=== PATIENT | male | born 1995 | race Caucasian/White ===

== ENCOUNTER 2016-11-16 18:40 | Emergency (ER) | payer SELFPAY ==
--- NOTE | 2016-11-16 19:58 | ED NURSING NOTES ---
Clinical Report - Nurses [facility] [place] [address] 11/16/2016 18:44 Patient: SIL DEWEY JR TRIAGE Triage time 19:13. Acuity: LEVEL 4. Chief Complaint: RIGHT LOWER EXTREMITY PAIN and SWELLING. --19:19 Galen Weems R.N. 19:13 11/16/16. BP: 141/89. HR: 90. RR: 14. O2 saturation: 100%. Temp: 98.1 F. Pain level now: 05/31. --19:19 Galen Weems R.N. Weight: 79.3 kg stated. Height/Length: 69 inches Per Patient. BMI: 25.8. --19:18 Galen Weems R.N. Medications Ibuprofen Oral. --19:16 Galen Weems R.N. Medication/allergy information source: the patient. --19:19 Galen Weems R.N. Allergies No Known Drug Allergy. --19:16 Galen Weems R.N. History Arrived by private vehicle. Historian: patient. Accompanied by family. ( Tripped and fell last Monday and injured his right lower leg from the fall after hitting it on a root of a big tree. Increasing pain and swelling since.). This occurred (3 days ago). Provoking / relieving factors: worsened by walking; relieved by remaining still and OTC analgesics. He has had swelling. ( bruising on the oh). 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 PAST MEDICAL HX: Negative. SURGERY HX: No history of previous surgery. SOCIAL HX: Smoker- current status unknown. Occasional alcohol use; consumes beer. History of drug use: marijuana. (1 days ago). --19:19 Galen Weems R.N. Interventions ID band on patient. To room. --19:19 Galen Weems R.N. PHYSICAL ASSESSMENT Ambulatory to room. GENERAL / NEURO / PSYCH: Oriented X 4. Alert. Appears in no acute distress. EXTREMITIES: Extremity pulses are within normal limits. Extremities exhibit normal ROM. Neuro-vascular status intact to the extremity. Normal gait. Right leg: tenderness, swelling and ecchymosis. SKIN: Skin intact. Skin is warm and dry. --19:20 Galen Weems R.N. NURSING PROGRESS NOTES Patient identifiers checked. Call light placed in reach. Side rails up x 1. Bed placed in lowest position. Brakes of bed on. Patient ready for evaluation- PA notified. --19:21 Galen Weems R.N. DISPOSITION / DISCHARGE Condition at departure: improved. ( VICENTA wrap applied on the right lower leg). No learning barriers present. Discharge instructions provided and reviewed with the patient. Reviewed medication(s) side effects, precautions, dosing and course information. Prescription(s) given to the patient. Reviewed referral to a primary care physician for followup. Patient verbalized understanding. Written instructions provided in Occitan. The patient was discharged home and accompanied by tailings dam laborer and friend. He left the Emergency Department ambulatory and via private vehicle. Political Consultant driving (friend). --20:06 Galen Weems R.N. 20:04 11/16/16. BP: 128/84. HR: 84. RR: 14. O2 saturation: 100%. Temp: deferred. Pain level now: 0/10. --20:06 Galen Weems R.N. Departure time: 20:06. --20:06 Galen Weems R.N. Locked/Released at 11/16/2016 20:07 by Galen Weems R.N.
--- NOTE | 2016-11-16 19:58 | ED ORDER SUMMARY ---
..... Patient: SIL DEWEY JR OrderSheet [facility] VisitID: [id number] [address] [place] [address] 21y, M Registration Date/Time: 11/16/2016 ORDER SHEET Weight: 79.3 kg (stated) Allergies: No Known Drug Allergy GENERAL ORDERS: Tibia/Fibula Right Urgent (19:23 11/16/2016 Macrina Wellington) (Ack 19:25 Evelia Shop And Alteration Tailor) (19:35 [facility]) MEDICATION ORDERS: IV FLUIDS: ORDER SHEET NOTES: [Electronically signed by Galen Weems R.N. (20:07 11/16/2016)] [Electronically signed by Jennifer Mccormick P.A.-C (20:30 11/16/2016)] [Electronically locked/signed by Galen Weems R.N. (20:07 11/16/2016)]
--- NOTE | 2016-11-16 19:58 | ED CLINICAL REPORT ---
Clinical Report - Physicians/Mid Levels [facility] [address] [place] [address] 11/16/2016 18:44 Patient: SIL DEWEY JR Time Seen: 19:25 Nov 16 2016. Arrived- By private vehicle. Historian- patient. HISTORY OF PRESENT ILLNESS Chief Complaint: Injury to right leg. 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 Patient is experiencing mild pain. (atient tripped and fell 3 days prior to arrival,sustaining injury from her onto his right lower extremity. He has been able to ambulate since the incident. Reports some swelling to the area.). REVIEW OF SYSTEMS The patient complains of pain on weight bearing. No tingling or skin laceration. All systems otherwise negative, except as recorded above. PAST HISTORY The patient has not had a prior injury to the same area. Tetanus immunization status is up-to-date. SOCIAL HISTORY Alcohol use. History of drug use: marijuana. ADDITIONAL NOTES The nursing notes have been reviewed. PHYSICAL EXAM Vital Signs: 11/16/2016 19:13 BP: 141/89. HR: 90. RR: 14. O2 saturation: 100%. Temp: 98.1 F. Pain level now: 1/10. Appearance: Alert. Head: Head atraumatic. ENT: Ears normal. No tonsillar exudate. CVS: Normal heart rate and rhythm. Respiratory: No respiratory distress. Breath sounds normal. No chest wall injury. Skin: Skin warm. No erythema. No drainage. (ecchymosis of tib/fib). There is warmth, tenderness and swelling. Extremities: Right thigh. No tenderness or swelling. Right knee. No tenderness or swelling. Right leg: tenderness, swelling and ecchymosis. Right ankle. Neurovascular intact distally. No joint effusion. No tenderness, swelling or puncture wound. Gait: Normal gait. Neuro, Vascular and Tendons: Vascular status intact. No pulse deficit present. Motor intact. No functional tendon deficit. Neuro: Oriented X 3. No motor deficit. No sensory deficit. LABS, X-RAYS, AND EKG Rt Tib/Fib X-ray: No fracture. Normal alignment. No bony lesion. Interpretation time: 1999. PROGRESS AND PROCEDURES Course of Care: There are no signs of fracture. Small erythema, warmth, fairly suspicious signs of infection, this patient will be treated for such. Otherwise stable. Ambulatory. No posterior pain. Full distal passive rom, no concern for compartment syndrome. Good distal pulse. Patient is stable. Physical exam findings are improved. Symptoms better. Patient/family counseled. Disposition: Discharged. Condition: good. CLINICAL IMPRESSION Contusion to the right lower leg. Hematoma to the right lower leg. Crush injury to the lower extremity. INSTRUCTIONS (ice/ motrin xray looks great take keflex). Prescription Medications: Cephalexin 500 mg: take 1 capsule orally every 8 hours for 7 days. No refill. OTC Medications: Take OTC medications according to label instructions. Available over the counter. Acetaminophen (available over the counter): take according to label instructions. Motrin (available over the counter): take according to label instructions. (Electronically signed by Jennifer Mccormick P.A.-C 11/16/2016 20:30)
--- NOTE | 2016-11-16 19:58 | ED NURSING NOTES ---
Clinical Report - Nurses [facility] [place] [address] 11/16/2016 18:44 Patient: SIL DEWEY JR TRIAGE Triage time 19:13. Acuity: LEVEL 4. Chief Complaint: RIGHT LOWER EXTREMITY PAIN and SWELLING. --19:19 Galen Weems R.N. 19:13 11/16/16. BP: 141/89. HR: 90. RR: 14. O2 saturation: 100%. Temp: 98.1 F. Pain level now: 05/31. --19:19 Galen Weems R.N. Weight: 79.3 kg stated. Height/Length: 69 inches Per Patient. BMI: 25.8. --19:18 Galen Weems R.N. Medications Ibuprofen Oral. --19:16 Galen Weems R.N. Medication/allergy information source: the patient. --19:19 Galen Weems R.N. Allergies No Known Drug Allergy. --19:16 Galen Weems R.N. History Arrived by private vehicle. Historian: patient. Accompanied by family. ( Tripped and fell last Monday and injured his right lower leg from the fall after hitting it on a root of a big tree. Increasing pain and swelling since.). This occurred (3 days ago). Provoking / relieving factors: worsened by walking; relieved by remaining still and OTC analgesics. He has had swelling. ( bruising on the oh). 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 PAST MEDICAL HX: Negative. SURGERY HX: No history of previous surgery. SOCIAL HX: Smoker- current status unknown. Occasional alcohol use; consumes beer. History of drug use: marijuana. (1 days ago). --19:19 Galen Weems R.N. Interventions ID band on patient. To room. --19:19 Galen Weems R.N. PHYSICAL ASSESSMENT Ambulatory to room. GENERAL / NEURO / PSYCH: Oriented X 4. Alert. Appears in no acute distress. EXTREMITIES: Extremity pulses are within normal limits. Extremities exhibit normal ROM. Neuro-vascular status intact to the extremity. Normal gait. Right leg: tenderness, swelling and ecchymosis. SKIN: Skin intact. Skin is warm and dry. --19:20 Galen Weems R.N. NURSING PROGRESS NOTES Patient identifiers checked. Call light placed in reach. Side rails up x 1. Bed placed in lowest position. Brakes of bed on. Patient ready for evaluation- PA notified. --19:21 Galen Weems R.N. DISPOSITION / DISCHARGE Condition at departure: improved. ( VICENTA wrap applied on the right lower leg). No learning barriers present. Discharge instructions provided and reviewed with the patient. Reviewed medication(s) side effects, precautions, dosing and course information. Prescription(s) given to the patient. Reviewed referral to a primary care physician for followup. Patient verbalized understanding. Written instructions provided in German. The patient was discharged home and accompanied by associate marketing manager and friend. He left the Emergency Department ambulatory and via private vehicle. Shearer Operator driving (friend). --20:06 Galen Weems R.N. 20:04 11/16/16. BP: 128/84. HR: 84. RR: 14. O2 saturation: 100%. Temp: deferred. Pain level now: 0/10. --20:06 Galen Weems R.N. Departure time: 20:06. --20:06 Galen Weems R.N. Locked/Released at 11/16/2016 20:07 by Galen Weems R.N.
--- NOTE | 2016-11-16 19:58 | ED ORDER SUMMARY ---
..... Patient: SIL DEWEY JR OrderSheet [facility] VisitID: [id number] [address] [address] 21y, M Registration Date/Time: 11/16/2016 ORDER SHEET Weight: 79.3 kg (stated) Allergies: No Known Drug Allergy GENERAL ORDERS: Tibia/Fibula Right Urgent (19:23 11/16/2016 Macrina Wellington) (Ack 19:25 Evelia Director Transportation) (19:35 [facility]) MEDICATION ORDERS: IV FLUIDS: ORDER SHEET NOTES: [Electronically signed by Galen Weems R.N. (20:07 11/16/2016)] [Electronically signed by Jennifer Mccormick P.A.-C (20:30 11/16/2016)] [Electronically locked/signed by Galen Weems R.N. (20:07 11/16/2016)]
--- NOTE | 2016-11-16 19:58 | ED CLINICAL REPORT ---
Clinical Report - Physicians/Mid Levels [facility] [address] [place] [address] 11/16/2016 18:44 Patient: SIL DEWEY JR Time Seen: 19:25 Nov 16 2016. Arrived- By private vehicle. Historian- patient. HISTORY OF PRESENT ILLNESS Chief Complaint: Injury to right leg. 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 Patient is experiencing mild pain. (atient tripped and fell 3 days prior to arrival,sustaining injury from her onto his right lower extremity. He has been able to ambulate since the incident. Reports some swelling to the area.). REVIEW OF SYSTEMS The patient complains of pain on weight bearing. No tingling or skin laceration. All systems otherwise negative, except as recorded above. PAST HISTORY The patient has not had a prior injury to the same area. Tetanus immunization status is up-to-date. SOCIAL HISTORY Alcohol use. History of drug use: marijuana. ADDITIONAL NOTES The nursing notes have been reviewed. PHYSICAL EXAM Vital Signs: 11/16/2016 19:13 BP: 141/89. HR: 90. RR: 14. O2 saturation: 100%. Temp: 98.1 F. Pain level now: 1/10. Appearance: Alert. Head: Head atraumatic. ENT: Ears normal. No tonsillar exudate. CVS: Normal heart rate and rhythm. Respiratory: No respiratory distress. Breath sounds normal. No chest wall injury. Skin: Skin warm. No erythema. No drainage. (ecchymosis of tib/fib). There is warmth, tenderness and swelling. Extremities: Right thigh. No tenderness or swelling. Right knee. No tenderness or swelling. Right leg: tenderness, swelling and ecchymosis. Right ankle. Neurovascular intact distally. No joint effusion. No tenderness, swelling or puncture wound. Gait: Normal gait. Neuro, Vascular and Tendons: Vascular status intact. No pulse deficit present. Motor intact. No functional tendon deficit. Neuro: Oriented X 3. No motor deficit. No sensory deficit. LABS, X-RAYS, AND EKG Rt Tib/Fib X-ray: No fracture. Normal alignment. No bony lesion. Interpretation time: 1999. PROGRESS AND PROCEDURES Course of Care: There are no signs of fracture. Small erythema, warmth, fairly suspicious signs of infection, this patient will be treated for such. Otherwise stable. Ambulatory. No posterior pain. Full distal passive rom, no concern for compartment syndrome. Good distal pulse. Patient is stable. Physical exam findings are improved. Symptoms better. Patient/family counseled. Disposition: Discharged. Condition: good. CLINICAL IMPRESSION Contusion to the right lower leg. Hematoma to the right lower leg. Crush injury to the lower extremity. INSTRUCTIONS (ice/ motrin xray looks great take keflex). Prescription Medications: Cephalexin 500 mg: take 1 capsule orally every 8 hours for 7 days. No refill. OTC Medications: Take OTC medications according to label instructions. Available over the counter. Acetaminophen (available over the counter): take according to label instructions. Motrin (available over the counter): take according to label instructions. (Electronically signed by Jennifer Mccormick P.A.-C 11/16/2016 20:30)
--- NOTE | 2016-11-16 20:31 | ED MED RECONCILIATION SUMMARY ---
Patient: SIL DEWEY JR Medication Reconciliation Report [facility] VisitID: [id number] [address] [place] [address] 21y, M Registration Date/Time: 11/16/2016 Weight: 79.3 kg Height/Length: 69 in. BMI: 25.8 ALLERGIES: No Known Drug Allergy The patient's Home Medications are listed below: THE FOLLOWING MEDICATIONS NEED TO BE RECONCILED: Ibuprofen Oral The source(s) of the original Home Medication information: patient The following Medications were given to the patient in the Emergency Department: None. The following Medications were prescribed to the patient: Take OTC medications according to label instructions. Available over the counter. -- Jennifer Mccormick, P.A.-C Acetaminophen (available over the counter): take according to label instructions. -- Jennifer Mccormick, P.A.-C Motrin (available over the counter): take according to label instructions. -- Jennifer Mccormick, P.A.-C Cephalexin 500 mg: take 1 capsule orally every 8 hours for 7 days. No refill. -- Jennifer Mccormick, P.A.-C
--- NOTE | 2016-11-16 20:31 | ED MAR SUMMARY ---
..... Medication Administration Record [facility] [address] [place], [place] [id number] Patient: SIL DEWEY Visit ID: [id number] 21y, M Weight: 79.3 kg Height/Length: 69 in BMI: 25.8 ALLERGIES: No Known Drug Allergy
--- NOTE | 2016-11-16 20:31 | ED MAR SUMMARY ---
..... Medication Administration Record [facility] [address] [place], [place] [id number] Patient: SIL DEWEY Visit ID: [id number] 21y, M Weight: 79.3 kg Height/Length: 69 in BMI: 25.8 ALLERGIES: No Known Drug Allergy
--- NOTE | 2016-11-16 20:31 | ED DISCHARGE INSTRUCTIONS ---
Patient: SIL DEWEY JR General Instructions [facility] VisitID: [id number] [place] [address] 21y, M Registration Date/Time: 11/16/2016 Contusion to the right lower leg. Hematoma to the right lower leg. Crush injury to the lower extremity. INSTRUCTIONS (ice/ motrin xray looks great take keflex). Prescription Medications: Cephalexin 500 mg: take 1 capsule orally every 8 hours for 7 days. No refill. OTC Medications: Take OTC medications according to label instructions. Available over the counter. Acetaminophen (available over the counter): take according to label instructions. Motrin (available over the counter): take according to label instructions. ADDITIONAL INFORMATION Contusion:Lower Extremity You have a CONTUSION of your LOWER extremity (leg, knee, ankle, foot, or toes). This causes local pain, swelling and sometimes bruising. There are no broken bones. This injury may take from a few days to a few weeks to heal. Home Care: 1) Keep your leg elevated to reduce pain and swelling. When sleeping, place a pillow under the injured leg. When sitting, support the injured leg so it is level with your waist. This is very important during the first 48 hours. 2) If CRUTCHES have been advised, do not bear full weight on the injured leg until you can do so without pain. You may return to sports when you are able to hop and run on the injured leg without pain. 3) Apply an ice pack (ice cubes in a plastic bag, wrapped in a towel) over the injured area for 20 minutes every 1-2 hours the first day for pain relief. Continue this 3-4 times a day until the pain and swelling goes away. 4) You may use acetaminophen (Tylenol) or ibuprofen (Motrin, Advil) to control pain, unless another pain medicine was prescribed. [ NOTE : If you have chronic liver or kidney disease or ever had a stomach ulcer or GI bleeding, talk with your doctor before using these medicines.] Follow Up with your doctor or this facility if you are not starting to improve within the next THREE days. [NOTE: If X-rays were taken, they will be reviewed by a radiologist. You will be notified of any new findings that may affect your care.] Get Prompt Medical Attention if any of the following occur: -- Pain or swelling increases -- Toes become cold, blue, numb or tingly -- Redness, warmth or drainage from the skin Hematoma A hematoma is caused by an injury with damage to small blood vessels. This causes blood to leak into the tissues. Blood forms a pocket under the skin that swells and looks like a purplish patch. Gradually the blood in the hematoma is absorbed back into the body. The swelling and pain of the hematoma will go away. This takes from one to four weeks, depending on the size of the hematoma. The skin over the hematoma may turn bluish then brown and yellow as the blood is dissolved and absorbed. Home Care: Limit motion of the joints near the hematoma. If the hematoma is large and painful, you should avoid sports and other vigorous physical activity until the swelling and pain goes away. Apply an ice pack (ice cubes in a plastic bag, wrapped in a towel) over the injured area for 20 minutes every 1-2 hours the first day. You should continue with ice packs 3-4 times a day for the next two days. Continue the use of ice packs for relief of pain and swelling as needed. You may use acetaminophen (Tylenol) or ibuprofen (Motrin, Advil) to control pain, unless another pain medicine was prescribed. [ NOTE : If you have chronic liver or kidney disease or ever had a stomach ulcer or GI bleeding, talk with your doctor before using these medicines.] Follow Up with your doctor or as advised by our staff. [ NOTE: A radiologist will review any X-rays that were taken. We will notify you of any new findings that may affect your care.] Get Prompt Medical Attention if any of the following occur: Redness around the hematoma Increase in pain or warmth in the hematoma Increase in size of the hematoma Fever of 100.4F (38C) or higher, or as directed by your healthcare provider If the hematoma is on the arm or leg, watch for: Increased swelling or pain in the extremity Numbness or tingling or blue color of the hand or foot Contusion,Soft Tissue You have a CONTUSION, which is a bruise with swelling and some bleeding under the skin. There are no broken bones. This injury takes a few days to a few weeks to heal. Home Care: 1) Keep the injured part elevated to reduce pain and swelling. This is especially important during the first 48 hours. 2) Make an ice pack (ice cubes in a plastic bag, wrapped in a towel) and apply for 20 minutes every 1-2 hours the first day. Continue this 3-4 times a day until the pain and swelling goes away. 3) You may use acetaminophen (Tylenol) or ibuprofen (Motrin, Advil) to control pain, unless another pain medicine was prescribed. [ NOTE : If you have chronic liver or kidney disease or ever had a stomach ulcer or GI bleeding, talk with your doctor before using these medicines.] Follow Up with your doctor or this facility if you are not improving within the next THREE days. [NOTE: If X-rays were taken, they will be reviewed by a radiologist. You will be notified of any new findings that may affect your care.] Get Prompt Medical Attention if any of the following occur: -- Pain or swelling increases -- Injured arm or leg becomes cold, blue, numb or tingly -- Redness, warmth or drainage from the skin Cephalexin Monohydrate Oral tablet What is this medicine? CEPHALEXIN (sef a KEVIN in) is a cephalosporin antibiotic. It is used to treat certain kinds of bacterial infections It will not work for colds, flu, or other viral infections. How should I use this medicine? Take this medicine by mouth with a full glass of water. Follow the directions on the prescription label. This medicine can be taken with or without food. Take your medicine at regular intervals. Do not take your medicine more often than directed. Take all of your medicine as directed even if you think you are better. Do not skip doses or stop your medicine early. Talk to your resident physician regarding the use of this medicine in children. While this drug may be prescribed for selected conditions, precautions do apply. What side effects may I notice from receiving this medicine? Side effects that you should report to your doctor or health menagerie caretaker as soon as possible: allergic reactions like skin rash, itching or hives, swelling of the face, lips, or tongue breathing problems pain or trouble passing urine redness, blistering, peeling or loosening of the skin, including inside the mouth severe or watery diarrhea unusually weak or tired yellowing of the eyes, skin Side effects that usually do not require medical attention (report to your doctor or health menagerie caretaker if they continue or are bothersome): gas or heartburn genital or anal irritation headache joint or muscle pain nausea, vomiting What may interact with this medicine? probenecid some other antibiotics What if I miss a dose? If you miss a dose, take it as soon as you can. If it is almost time for your next dose, take only that dose. Do not take double or extra doses. There should be at least 4 to 6 hours between doses. Where should I keep my medicine? Keep out of the reach of children. Store at room temperature between 59 and 86 degrees F (15 and 30 degrees C). Throw away any unused medicine after the expiration date. What should I tell my health care provider before I take this medicine? They need to know if you have any of these conditions: kidney disease stomach or intestine problems, especially colitis an unusual or allergic reaction to cephalexin, other cephalosporins, penicillins, other antibiotics, medicines, foods, dyes or preservatives or trying to get breast-feeding What should I watch for while using this medicine? Tell your doctor or health menagerie caretaker if your symptoms do not begin to improve in a few days. Do not treat diarrhea with over the counter products. Contact your doctor if you have diarrhea that lasts more than 2 days or if it is severe and watery. If you have diabetes, you may get a false-positive result for sugar in your urine. Check with your doctor or health menagerie caretaker. You have been given the following additional information: Contusion, Lower Extremity Hematoma Contusion, Soft Tissue Cephalexin Monohydrate Oral tablet (Electronically signed by Jennifer Mccormick P.A.-C 11/16/2016 20:30)
--- NOTE | 2016-11-16 20:31 | ED MED RECONCILIATION SUMMARY ---
Patient: SIL DEWEY JR Medication Reconciliation Report [facility] VisitID: [id number] [address] [place] [address] 21y, M Registration Date/Time: 11/16/2016 Weight: 79.3 kg Height/Length: 69 in. BMI: 25.8 ALLERGIES: No Known Drug Allergy The patient's Home Medications are listed below: THE FOLLOWING MEDICATIONS NEED TO BE RECONCILED: Ibuprofen Oral The source(s) of the original Home Medication information: patient The following Medications were given to the patient in the Emergency Department: None. The following Medications were prescribed to the patient: Take OTC medications according to label instructions. Available over the counter. -- Jennifer Mccormick, P.A.-C Acetaminophen (available over the counter): take according to label instructions. -- Jennifer Mccormick, P.A.-C Motrin (available over the counter): take according to label instructions. -- Jennifer Mccormick, P.A.-C Cephalexin 500 mg: take 1 capsule orally every 8 hours for 7 days. No refill. -- Jennifer Mccormick, P.A.-C
--- NOTE | 2016-11-16 20:31 | ED DISCHARGE INSTRUCTIONS ---
Patient: SIL DEWEY JR General Instructions [facility] VisitID: [id number] [place] [address] 21y, M Registration Date/Time: 11/16/2016 Contusion to the right lower leg. Hematoma to the right lower leg. Crush injury to the lower extremity. INSTRUCTIONS (ice/ motrin xray looks great take keflex). Prescription Medications: Cephalexin 500 mg: take 1 capsule orally every 8 hours for 7 days. No refill. OTC Medications: Take OTC medications according to label instructions. Available over the counter. Acetaminophen (available over the counter): take according to label instructions. Motrin (available over the counter): take according to label instructions. ADDITIONAL INFORMATION Contusion:Lower Extremity You have a CONTUSION of your LOWER extremity (leg, knee, ankle, foot, or toes). This causes local pain, swelling and sometimes bruising. There are no broken bones. This injury may take from a few days to a few weeks to heal. Home Care: 1) Keep your leg elevated to reduce pain and swelling. When sleeping, place a pillow under the injured leg. When sitting, support the injured leg so it is level with your waist. This is very important during the first 48 hours. 2) If CRUTCHES have been advised, do not bear full weight on the injured leg until you can do so without pain. You may return to sports when you are able to hop and run on the injured leg without pain. 3) Apply an ice pack (ice cubes in a plastic bag, wrapped in a towel) over the injured area for 20 minutes every 1-2 hours the first day for pain relief. Continue this 3-4 times a day until the pain and swelling goes away. 4) You may use acetaminophen (Tylenol) or ibuprofen (Motrin, Advil) to control pain, unless another pain medicine was prescribed. [ NOTE : If you have chronic liver or kidney disease or ever had a stomach ulcer or GI bleeding, talk with your doctor before using these medicines.] Follow Up with your doctor or this facility if you are not starting to improve within the next THREE days. [NOTE: If X-rays were taken, they will be reviewed by a radiologist. You will be notified of any new findings that may affect your care.] Get Prompt Medical Attention if any of the following occur: -- Pain or swelling increases -- Toes become cold, blue, numb or tingly -- Redness, warmth or drainage from the skin Hematoma A hematoma is caused by an injury with damage to small blood vessels. This causes blood to leak into the tissues. Blood forms a pocket under the skin that swells and looks like a purplish patch. Gradually the blood in the hematoma is absorbed back into the body. The swelling and pain of the hematoma will go away. This takes from one to four weeks, depending on the size of the hematoma. The skin over the hematoma may turn bluish then brown and yellow as the blood is dissolved and absorbed. Home Care: Limit motion of the joints near the hematoma. If the hematoma is large and painful, you should avoid sports and other vigorous physical activity until the swelling and pain goes away. Apply an ice pack (ice cubes in a plastic bag, wrapped in a towel) over the injured area for 20 minutes every 1-2 hours the first day. You should continue with ice packs 3-4 times a day for the next two days. Continue the use of ice packs for relief of pain and swelling as needed. You may use acetaminophen (Tylenol) or ibuprofen (Motrin, Advil) to control pain, unless another pain medicine was prescribed. [ NOTE : If you have chronic liver or kidney disease or ever had a stomach ulcer or GI bleeding, talk with your doctor before using these medicines.] Follow Up with your doctor or as advised by our staff. [ NOTE: A radiologist will review any X-rays that were taken. We will notify you of any new findings that may affect your care.] Get Prompt Medical Attention if any of the following occur: Redness around the hematoma Increase in pain or warmth in the hematoma Increase in size of the hematoma Fever of 100.4F (38C) or higher, or as directed by your healthcare provider If the hematoma is on the arm or leg, watch for: Increased swelling or pain in the extremity Numbness or tingling or blue color of the hand or foot Contusion,Soft Tissue You have a CONTUSION, which is a bruise with swelling and some bleeding under the skin. There are no broken bones. This injury takes a few days to a few weeks to heal. Home Care: 1) Keep the injured part elevated to reduce pain and swelling. This is especially important during the first 48 hours. 2) Make an ice pack (ice cubes in a plastic bag, wrapped in a towel) and apply for 20 minutes every 1-2 hours the first day. Continue this 3-4 times a day until the pain and swelling goes away. 3) You may use acetaminophen (Tylenol) or ibuprofen (Motrin, Advil) to control pain, unless another pain medicine was prescribed. [ NOTE : If you have chronic liver or kidney disease or ever had a stomach ulcer or GI bleeding, talk with your doctor before using these medicines.] Follow Up with your doctor or this facility if you are not improving within the next THREE days. [NOTE: If X-rays were taken, they will be reviewed by a radiologist. You will be notified of any new findings that may affect your care.] Get Prompt Medical Attention if any of the following occur: -- Pain or swelling increases -- Injured arm or leg becomes cold, blue, numb or tingly -- Redness, warmth or drainage from the skin Cephalexin Monohydrate Oral tablet What is this medicine? CEPHALEXIN (sef a KEVIN in) is a cephalosporin antibiotic. It is used to treat certain kinds of bacterial infections It will not work for colds, flu, or other viral infections. How should I use this medicine? Take this medicine by mouth with a full glass of water. Follow the directions on the prescription label. This medicine can be taken with or without food. Take your medicine at regular intervals. Do not take your medicine more often than directed. Take all of your medicine as directed even if you think you are better. Do not skip doses or stop your medicine early. Talk to your flatwork tier regarding the use of this medicine in children. While this drug may be prescribed for selected conditions, precautions do apply. What side effects may I notice from receiving this medicine? Side effects that you should report to your doctor or health customer care manager as soon as possible: allergic reactions like skin rash, itching or hives, swelling of the face, lips, or tongue breathing problems pain or trouble passing urine redness, blistering, peeling or loosening of the skin, including inside the mouth severe or watery diarrhea unusually weak or tired yellowing of the eyes, skin Side effects that usually do not require medical attention (report to your doctor or health customer care manager if they continue or are bothersome): gas or heartburn genital or anal irritation headache joint or muscle pain nausea, vomiting What may interact with this medicine? probenecid some other antibiotics What if I miss a dose? If you miss a dose, take it as soon as you can. If it is almost time for your next dose, take only that dose. Do not take double or extra doses. There should be at least 4 to 6 hours between doses. Where should I keep my medicine? Keep out of the reach of children. Store at room temperature between 59 and 86 degrees F (15 and 30 degrees C). Throw away any unused medicine after the expiration date. What should I tell my health care provider before I take this medicine? They need to know if you have any of these conditions: kidney disease stomach or intestine problems, especially colitis an unusual or allergic reaction to cephalexin, other cephalosporins, penicillins, other antibiotics, medicines, foods, dyes or preservatives or trying to get breast-feeding What should I watch for while using this medicine? Tell your doctor or health customer care manager if your symptoms do not begin to improve in a few days. Do not treat diarrhea with over the counter products. Contact your doctor if you have diarrhea that lasts more than 2 days or if it is severe and watery. If you have diabetes, you may get a false-positive result for sugar in your urine. Check with your doctor or health customer care manager. You have been given the following additional information: Contusion, Lower Extremity Hematoma Contusion, Soft Tissue Cephalexin Monohydrate Oral tablet (Electronically signed by Jennifer Mccormick P.A.-C 11/16/2016 20:30)
--- NOTE | 2016-11-16 20:35 | DIAGNOSTIC IMAGING REPORT ---
PROCEDURE: XR TIBIA AND FIBULA - RIGHT INDICATION: TRAUMA/INJURY TECHNIQUE: AP and lateral views. COMPARISON: None. FINDINGS: Anterior midshaft contusion overlying the tibia with a 1.8 mm subcutaneous radiodensity which may represent a foreign body. No fracture dislocation. IMPRESSION: 1. Anterior midshaft contusion overlying the tibia with possible foreign body
== END 2016-11-16 20:06 | disposition home or self-care (01) ==
LOC: ED SRH 18:40
DX: S80.11XA Contusion of right lower leg, initial encounter (principal); W01.198A Fall on same level from slipping, tripping and stumbling with subsequent striking against other object, initial encounter; Y93.9 Activity, unspecified; Y92.9 Unspecified place or not applicable; Y99.9 Unspecified external cause status